=== PATIENT | female | born 1955 | race Hispanic/Latino ===

== ENCOUNTER 2024-05-12 06:26 | Day surgery (SDC) | payer MEDICARE ==
[2024-05-08 10:38] VITALS: BP 136/65; PULSE 71; RESP 18; TEMP 97.3
[2024-05-08 10:51] LABS: CREATININE 0.7 mg/dL (0.5-1.0); POTASSIUM 4.2 mmol/L (3.5-5.1)
[2024-05-08 11:06] LABS: BASOPHILS # (AUTO) 0.02 K/uL (0.00-0.20); BASOPHILS % (AUTO) 0.5 % (0.0-5.0); EOSINOPHILS # (AUTO) 0.11 K/uL (0.00-0.70); EOSINOPHILS % (AUTO) 2.8 % (0.0-8.0); HEMATOCRIT 37.9 % (36-48); IMMATURE GRANULOCYTE ABSOLUTE 0.04 K/uL (0-1); LYMPHOCYTES # (AUTO) 1.3 K/uL (1.0-4.8); LYMPHOCYTES % (AUTO) 31.5 % (21.0-51.0); MEAN CORPUSCULAR HEMOGLOBIN 33.5 pg (27.0-33.0); MEAN CORPUSCULAR HGB CONC 34.3 g/dL (32.0-36.0); MEAN CORPUSCULAR VOLUME 97.7 fL (79-99); MONOCYTES # (AUTO) 0.4 K/uL (0.1-1.0); NEUTROPHILS # (AUTO) 2.2 K/uL (1.8-7.7); NEUTROPHILS % (AUTO) 54.2 % (40.0-77.0); PLATELET COUNT (AUTO) 207 K/uL (130-400); RED BLOOD CELL COUNT(AUTO) 3.88 MIL/uL (4.00-5.50); RED CELL DISTRIBUTION WIDTH 13.6 % (11.0-15.5)
[2024-05-12] VITALS (17 sets, daily range): BP systolic 131–154; BP diastolic 58–69; PULSE 85–100; RESP 15–19; TEMP 97–97.3
[~2024-05-12] VITALS: Ht 157.5 cm; Wt 74.8 kg
[2024-05-12] MEDS: BUPIvacaine/PF 0.25% 30ML VIAL IJ ONE
[~2024-05-12 06:26] MED LIST: FOLI1 PO; HYDR25TA PO; METH2.5T6 PO; OMEP20CA12 PO
[2024-05-12] MEDS: ceFAZolin SODIUM 2 GM VIAL ONE (07:12)
[2024-05-12] MEDS: 0.9%NACL 1000ML 1,000 ML IV ONE (07:12)
[2024-05-12] MEDS ORDERED: LIDOCAINE PF 100MG/5ML (2%) SYRINGE 5ML ONE (08:01)
[2024-05-12] MEDS ORDERED: FENTanyl CITRate PF 50 MCG/1 ML 2ML VIAL ONE ×2 (08:02→09:22)
[2024-05-12] MEDS ORDERED: rocuRONium bROMide 10MG/1ML 5ML VL ONE (08:02)
[2024-05-12] MEDS ORDERED: ondanSETRON 4MG INJ ONE (08:02)
[2024-05-12] MEDS ORDERED: MIDAZOLAM HCL 1 MG/ML 2ML VIAL ONE (08:02)
[2024-05-12] MEDS ORDERED: proPOFol 10 MG/ML 20ML VIAL IV ONE (08:02)
[2024-05-12] MEDS ORDERED: ePHEDrine SULFate 50 MG/ML AMPULE ONE (08:57)
[2024-05-12] MEDS ORDERED: NEOSTIGMINE METHYLSULFATE 1MG/ML IV ONE (09:23)
[2024-05-12] MEDS ORDERED: GLYCOPYRROLATE 0.2 MG/ML 5 ML VIAL ONE (09:23)
--- NOTE | 2024-05-12 09:52 | OP ---
Operative Note: DATE OF PROCEDURE: 05/12/24 SURGEON: PRINCE MARSHALL MD MEDICAL STAFF PHYSICIAN: [] ANESTHESIA: [] General ANESTHESIOLOGIST/ASSURANCE MANAGER INSURANCE: [] PREOPERATIVE DIAGNOSIS: [] Cholecystitis POSTOPERATIVE DIAGNOSIS: [] The same SYNOPSIS: [] PROCEDURE: [] Robotic cholecystectomy ESTIMATED BLOOD LOSS: [] None INDICATIONS: [] DESCRIPTION OF PROCEDURE: []With the patient prepped and draped we did a supraumbilical incision. Using direct technique I placed a balloon trocar. Two da Jennifer trochars were placed in each side of the abdomen under direct vision. A 5 mm trocar was placed in the right lateral side. I then went to the console and the robot was docked. I took all adhesions from the gallbladder and I started dissecting the triangle of Calot. The liver looks nodular. The cystic duct and the cystic artery were clearly identified and both were double clipped and divided. I took the gallbladder from below using cautery dissection. After the gallbladder was completely removed and adequate hemostasis was obtained I remove all the instruments from the abdomen. I undocked the robot and I came back to the bedside of the patient. I confirm hemostasis suction and irrigate and I placed the gallbladder in a bag. I injected 40 cc of Marcaine 0.25% as an abdominal tap block under direct vision. I injected 20 cc in each side of the abdomen. I took out all the trochars under direct vision and the gallbladder through the supraumbilical incision. I closed the fascia of the supraumbilical incision with a 0 Vicryl [id number]. All incisions were closed with 4-0 Monocryl and Steri-Strips. The patient was transferred stable to the recovery room. PRINCE MARSHALL MD May 12, 2024 09:52
[2024-05-12] MEDS: MEPERIDINE-PF 100 MG/ML SYG ONE (10:11)
--- NOTE | 2024-05-12 11:18 | NUR ---
Full and complete discharge instructions given to Patient and Family both verbally and in writing. All questions answered. Tolerating PO fluids well. Voiced understanding to SURGICAL procedure and follow up. Neurovascularly intact. Dressings x 4 clean and dry. PIV removed with catheter tip intact. Voided in bathroom large amount. W\C to POV with Family to home.
== END 2024-05-12 11:23 | disposition home or self-care (01) ==
LOC: DAH 06:26
PROVIDERS: ATTEND Surgery
DX: K80.10 Calculus of gallbladder with chronic cholecystitis without obstruction (principal); I10 Essential (primary) hypertension; E11.9 Type 2 diabetes mellitus without complications; E66.01 Morbid (severe) obesity due to excess calories; K21.9 Gastro-esophageal reflux disease without esophagitis; Z68.30 Body mass index [BMI] 30.0-30.9, adult; Z79.899 Other long term (current) drug therapy
CPT/HCPCS: 80048; 85025; 36415; 47562; 82948 ×2; 88304; A6260; A4663; J7030 ×2; J3010 ×2; J0665; J3490 ×3; J2003; J2250; J2704; J2405; J2710; J2175; J0690; C1769; A4649; A4930; A4215; A4222; A4221; A4216; A4450; A4223 ×2; A4600